=== PATIENT | male | born 1965 | race Caucasian/White ===

== ENCOUNTER 2024-10-02 13:12 | Emergency (ER) | payer BC, SELFPAY ==
[2024-10-02 13:27] VITALS: BP 137/86
--- NOTE | 2024-10-02 16:24 | ED.GENMED ---
History of Present Illness
General
Chief Complaint: Crisis Evaluation
Source: patient
Exam Limitations: none
Time Seen by Provider: 10/02/24 13:44
Nursing documentation reviewed up to this point in time: agreed with
History of Present Illness
History of Present Illness:
Patient presents to ED requesting [facility] crisis evaluation, secondary to ongoing alcohol use, of which are associated with suicidal ideation and uncontrollable emotional outbursts. Patient denies homicidal ideation. Patient's last alcohol
intake was last night. Denies fever or chills. Denies recent illness. Denies nausea, vomiting, or diarrhea. Denies loss of appetite.
Review of Systems
Review of Systems
Allergies reviewed?: Yes
All Other Systems: ROS reviewed and negative except as documented in HPI and ROS
Constitutional: Reports no symptoms
Cardiac: Reports no symptoms
ABD/GI: Reports no symptoms
Musculoskeletal: Reports no symptoms
Skin: Reports no symptoms
Neurological: Reports no symptoms
Psychiatric: Reports suicidal
Phy Exam
Physical Exam
Physical Exam:
Physical Exam
General: no apparent distress, not acutely ill. afebrile
Head: nc/at. eomi
Neck: supple. normal range of motion.
Heart: s1/s2 regular rate and rhythm
Lungs: no acute respiratory distress. clear bilaterally
Abdomen: normal bowel sounds. not tender.
Neuro: alert and oriented x 3. no focal neurological deficits
Skin: no rash
Psychiatric: well kept. interactive and cooperative
Extremities: no edema. no calf tenderness
Course
Orders/Labs/Results
Orders:
Orders
10/02/24 13:44
Crisis Consult Urgent
Reason for Consult: suicidal ideation
10/02/24 16:46
Acetaminophen Urgent
Alcohol Urgent
Comprehensive Metabolic Panel Urgent
Salicylate Urgent
10/02/24 16:48
Complete Blood Count/No Diff Urgent
Urine Drug Abuse Screen Urgent
Date Specimen was Collected: 10/02/24
Time Specimen was Collected: 16:20
Abnormal Lab Results
10/02/24 10/02/24
16:46 16:48
RBC 4.16 L 10^6/uL
(4.70-6.10)
Hct 38.7 L %
(39.0-52.0)
MCH 32.9 H pg
(27.0-31.0)
RDW 15.5 H %
(11.5-14.5)
Carbon Dioxide 31 H mmol/L
(22-30)
Alkaline Phosphatase 221 H U/L
(38-126)
Salicylates < 1.0 L mg/dl
(2.0-20.0)
Acetaminophen < 10 L ug/ml
(10-30)
10/02/24 16:48
10/02/24 16:46
Vital Signs
Initial and Last Documented VS:
Initial Vital Signs
Temp Pulse Resp BP Pulse Ox
98.6 F 102 26 137/86 97
10/02/24 13:27 10/02/24 13:27 10/02/24 13:27 10/02/24 13:27 10/02/24 13:27
Last Documented Vital Signs
Temp Pulse Resp BP Pulse Ox
98.6 F 76 16 130/89 98
10/02/24 13:27 10/02/24 17:23 10/02/24 19:00 10/02/24 17:23 10/02/24 17:23
MDM/Problems Addressed
MDM/Problems Addressed:
Patient evaluated in ED by [facility] size worker. Pt medically cleared.
Patient will be transition to inpatient psychiatric facility for further evaluation and treatment.
*Pulse Oximetry
SaO2: 97
Oxygen Mode of Delivery: Room air
Patient hypoxic: no
*Critical Care Note
Total Time (30-74mins, 75-104mins- exclusive of procedures): Not Applicable
ED Attending Note
-
Portions of this chart may have been created with voice recognition software.� Occasional wrong word or��sound alike� substitutions may have occurred due to the inherent limitations of voice recognition software.
Discharge Plan
Departure
Patient Disposition: Psych Facility
Date of Disposition: 10/02/24
Time of Disposition: 16:26
Discharge Problem:
Alcohol dependence, Suicide ideation
Interventions
Interventions:
*Risk Screen - Suicide Last Done: 10/02/24 13:14
*General Assessment Last Done: 10/02/24 13:27
*Neglect/Abuse Screening Last Done: 10/02/24 13:27
ED-Psychological Assessment Last Done: 10/02/24 15:01
Discharge Date and Time
Print Language: [place]IZ[place]
[2024-10-02 16:57] LABS: Hematocrit 38.7 % (39.0-52.0); Hemoglobin 13.7 g/dL (13.0-18.0); Mean Corp Hgb Conc. 35.4 g/dL (33.0-37.0); Mean Corpuscular Volume 93.0 fL (80.0-94.0); Platelet Count 163 10^3/uL (130-400); Red Cell Dist. Width 15.5 % (11.5-14.5)
[2024-10-02 17:10] LABS: ALT (SGPT) 33 U/L (0-50); AST (SGOT) 57 U/L (17-59); Albumin 4.2 g/dl (3.5-5.0); Alkaline Phosphatase 221 U/L (38-126); Blood Urea Nitrogen 13 mg/dl (9-20); Calcium 9.1 mg/dl (8.4-10.2); Carbon Dioxide 31 mmol/L (22-30); Chloride 98 mmol/L (98-107); Glucose 99 mg/dl (70-99); Potassium 3.7 mmol/L (3.5-5.1); Salicylate < 1.0 mg/dl (2.0-20.0); Sodium 136 mmol/L (135-145); Total Protein 8.1 g/dl (6.3-8.2); eGFR > 60.00
[2024-10-02 17:23] VITALS: BP 130/89
[2024-10-02 18:01] LABS: Acetaminophen < 10 ug/ml (10-30)
== END 2024-10-02 20:20 ==
LOC: EMR 13:12
PROVIDERS: EMERGENCY PHYSICIAN Emergency Medicine; FAMILY PHYSICIAN Nurse Practitioner Primary Care
DX: F10.20 Alcohol dependence, uncomplicated (principal); R45.851 Suicidal ideations
CPT/HCPCS: 99285; 80053; 80143; 80179; 80306; 82077; 85027